=== PATIENT | male | born 2005 | race Caucasian/White ===

== ENCOUNTER 2024-04-13 22:59 | Emergency (ER) | payer OTHER, SELFPAY ==
[2024-04-13 22:59] VITALS: BP 149/91; PULSE 102; RESP 16; TEMP 36.6; O2SAT 100; BMI 19.7
--- NOTE | 2024-04-14 00:43 | EDS_ITS ---
HPI History of Present Illness Chief Complaint: Laceration Informant: patient Narrative Narrative: Patient is a 18-year-old male with no significant past medical history. He states he is [id number]. He states that he has a hobby where he collects knives. He states this evening he was opening a new knife and he cut his left hand. He denies any numbness tingling or weakness. He denies any history of bleeding disorder or blood thinner use. He is unsure of his tetanus status. However with the laceration he was concerned he may need closure with sutures and therefore comes in for evaluation [facility] Medical History no medical history no medical history Allergy/AdvReac Type Severity Reaction Status Date / Time No Known Allergies Allergy Verified 04/13/24 23:00 Social History Smoking Status: Never smoker ROS ROS ED Constitutional Constitutional ED: Denies chills or fever(s) ENT ENT ED: Denies sore throat Respiratory/Chest Respiratory/Chest: Denies cough or dyspnea Gastrointestinal Gastrointestinal: Denies abdominal pain, diarrhea, nausea or vomiting Musculoskeletal Musculoskeletal: Reports other Details: Positive left hand pain Integumentary Reports other Details: Positive left hand laceration Neurologic Neurologic: Denies headache(s), paresthesias or weakness Hematologic/Lymphatic Hematologic/Lymphatic: Denies easy bleeding or easy bruising EXAM Physical Exam Const Vital Signs: 04/13/24 22:59 04/14/24 00:57 Temperature 98 F 98.3 F Temperature Source Oral Pulse Rate 102 H 71 Respiratory Rate 16 18 Blood Pressure 149/91 H 116/67 Blood Pressure Mean 110 83 Pulse Ox 100 100 Oxygen Delivery Method Room Air Positive well nourished and well developed General Appearance ED: well developed HEENT HEENT Narrative: Normocephalic atraumatic Eyes PERRL and EOMs intact bilaterally General Eye ED: Negative for scleral icterus Neck supple Resp normal respiratory effort and clear to auscultation bilaterally Cardio regular rate and regular rhythm Extremity Extremity Narrative: Left upper extremity is neurovascularly intact; AIN/PIN are intact and normal No ligamentous or tendon injury noted Patient has a curved linear 1.5 cm laceration between the webspace of the first and second digit. There is minimal ooze of blood without foreign body. Remainder of the exam is normal Neuro oriented x3, CN's II-XII intact bilaterally and no sensory deficits noted Sensorium / Orientation: alert Motor Exam: strength 5/5 throughout Psych mental status grossly normal Skin Skin Narrative: Laceration to the left hand as documented above MDM MDM MDM Narrative Medical decision making narrative: Patient arrived to the ER slightly hypertensive but otherwise with stable vitals. He sustained a simple laceration to his left hand. As he is unsure of his tetanus status this was updated secondary to the laceration. However he did not have ligamentous or tendon injury by exam there is low risk for retained foreign body as it was from a pocket knife and not a broken object and therefore I felt no need for an x-ray. Without ligamentous or tendon injury there is no need for emergent orthopedic consultation. The patient had the wound sutured as documented below and following this he is otherwise safe for discharge Patient had the left hand laceration cleaned with chlorhexidine. It was anesthetized with 3 mL of 2% lidocaine with epinephrine in local fashion. The wound was copiously irrigated with normal saline. Then five 4-0 Ethilon sutures were placed in simple interrupted fashion to bring the wound edges together with good approximation. Patient tolerated the procedure well without complication History & Record Review Discussion w/independent historian: Patient Discharge Plan Triage Chief Complaint: Laceration ED Provider: Justin Bradley Dx/Rx/DC Orders Clinical Impression: Laceration of hand, left, Hypertension Instructions: ED Laceration, Hand: All Closures Primary Care Provider: Singh Schreiber Referrals: Singh Schreiber DO [Primary Care Provider] - Activity Restrictions/Additional Instructions: Please see your family doctor or return to the ER in 7 to 10 days for suture removal Print Language: [place] Disposition Disposition: Home, Self Care Discharge Date/Time: 04/14/24 00:58
[2024-04-14] MEDS: Lidocaine 2% /Epi 1:100 (20ml) 20 ML VIAL 10 ML INFILT (00:56)
[2024-04-14 00:57] VITALS: BP 116/67; PULSE 71; RESP 18; TEMP 36.8; O2SAT 100
== END 2024-04-14 00:58 | disposition home or self-care (01) ==
PROVIDERS: Emergency Provider Emergency Medicine; Visit Provider Emergency Medicine
DX: S61.412A Laceration without foreign body of left hand, initial encounter (principal); W26.0XXA Contact with knife, initial encounter; I10 Essential (primary) hypertension; Z23 Encounter for immunization
CPT/HCPCS: 12001